=== PATIENT | female | born 1950 | race African-American/Black ===

== ENCOUNTER 2024-01-29 10:00 | Outpatient (RCR) | payer MEDICARE | END 2024-02-05 | LOC: OT 10:00 | PROVIDERS: ATTEND Physician Assistant | DX: M65.341 Trigger finger, right ring finger (principal); M75.122 Complete rotator cuff tear or rupture of left shoulder, not specified as traumatic; M79.644 Pain in right finger(s); M25.641 Stiffness of right hand, not elsewhere classified; M25.512 Pain in left shoulder; M25.612 Stiffness of left shoulder, not elsewhere classified; R53.1 Weakness ==

== ENCOUNTER 2024-02-07 07:51 | Outpatient (RCR) | payer MEDICARE | END 2024-03-07 | LOC: OT 07:51 | PROVIDERS: ATTEND Physician Assistant | DX: M65.341 Trigger finger, right ring finger (principal); M75.122 Complete rotator cuff tear or rupture of left shoulder, not specified as traumatic; M25.512 Pain in left shoulder; M25.612 Stiffness of left shoulder, not elsewhere classified; M79.644 Pain in right finger(s); M25.641 Stiffness of right hand, not elsewhere classified; R53.1 Weakness ==